=== PATIENT | male | born 1955 | race Caucasian/White ===

== ENCOUNTER 2019-01-25 13:00 | Observation (INO) | payer BC ==
[2019-01-25] MEDS ORDERED: LEVALBUTEROL 1.25 MG/3 ML NEB ONE (14:43)
[2019-01-25 15:03] LABS: ALT/SGPT 20 U/L (12-78); AST/SGOT 7 U/L (15-37); Albumin 3.1 g/dL (3.4-5.0); Alkaline Phosphatase 96 U/L (45-117); BUN Blood Urea Nitrogen 9 mg/dL (7-18); Bicarbonate 36 mmol/L (21-32); Bilirubin Direct 0.1 mg/dL (0-0.2); Bilirubin Total 0.5 mg/dL (0.2-1.0); Glucose Level 78 mg/dL (74-106); Lipase 122 U/L (73-393); Magnesium 1.8 mg/dL (1.8-2.4); NT PRO-BNP 2984 pg/mL (<125); Potassium 3.3 mmol/L (3.5-5.1); Protein, Total 7.3 g/dL (6.4-8.2); Sodium Level 146 mmol/L (136-145); Troponin (Emerg Dept Use Only) 0.06 ng/mL (0.0-0.045)
--- NOTE | 2019-01-25 15:25 | RAD REPORT ---
EXAM DESCRIPTION: RAD - Chest Pa And Lat (2 Views) - 01/25/2019 2:57 pm CLINICAL HISTORY: SOB Chest pain. COMPARISON: Chest For Pe Angio dated 01/25/2019 FINDINGS: Diffuse emphysema is present. Mild interstitial pulmonary edema likely present. The heart is mildly enlarged in size. No displaced fractures. IMPRESSION: Mild CHF superimposed on COPD.
--- NOTE | 2019-01-25 15:33 | RAD REPORT ---
EXAM DESCRIPTION: CT - Chest For Pe Angio - 01/25/2019 3:20 pm CLINICAL HISTORY: Chest pain. DYSPNEA COMPARISON: Chest Abd Pelvis Wo Con dated 06/09/2017 TECHNIQUE: CT angiogram of the pulmonary arteries was performed with MIP. All CT scans are performed using dose optimization technique as appropriate and may include automated exposure control or mA/KV adjustment according to patient size. FINDINGS: No evidence of pulmonary thromboembolism. No acute aortic finding demonstrated. The heart is moderately enlarged. Mild emphysematous changes are present with mild to moderate pulmonary edema. Linear atelectasis is s een in the lingula. No significant pericardial or pleural fluid. No concerning bony finding. Small hiatal hernia. Left adrenal lesion measuring 23 mm is noted. 3.9 cm left thyroid nodule is present. IMPRESSION: No evidence of pulmonary thromboembolism. Mild CHF.
[2019-01-25 15:39] LABS: Absolute Lymphocytes (CBC) 1.5 K/uL (0.7-4.9); Absolute Monocytes 0.9 K/uL (0.1-1.3); Absolute Neutrophil 7.6 K/uL (1.8-8.0); Basophils % 1.1 % (0-1.3); Hematocrit 44.1 % (39.6-49.0); Lymphocytes % 15.1 % (15.3-44.8); MPV 10.3 fL (7.6-11.3); Monocytes % 8.6 % (3.3-12.3); RBC Red Blood Cell Count 5.16 M/uL (4.33-5.43)
[2019-01-25 15:56] LABS: Protime INR 1.07
[2019-01-25] MEDS ORDERED: POTASSIUM 25 MEQ EFFERV TAB ONE (16:32)
[2019-01-25] MEDS ORDERED: FUROSEMIDE 40 MG/4 ML VIAL ONE (16:52)
[2019-01-25] MEDS ORDERED: NITROGLYCERIN 0.4 MG/TAB SL ONE (16:52)
--- NOTE | 2019-01-25 17:00 | EDPHYS ---
Physician Documentation [facility] Name: Daniel Barroso Age: 63 yrs Sex: Male : 1955 Arrival Date: 01/25/2019 Time: 13:05 Bed 27 Private MD: ED Physician French Leblanc HPI: 01/25 16:36 This 63 yrs old Male presents to ER via EMS with complaints of Shortness Of wa Breath. 16:36 This 63 yrs old Male presents to ER via EMS with complaints of Shortness Of wa Breath. 16:36 The patient has shortness of breath at rest, with light activity, that occurred at md home, and the patient has a history of HTN, DM. Onset: The symptoms/episode began/occurred 4 week(s) ago. Duration: The symptoms are continuous, and are steadily getting worse. The patient's shortness of breath is aggravated by exertion, light activity, walking, is alleviated by nothing. Associated signs and symptoms: Pertinent negatives: chest pain, non-productive cough, diaphoresis, dizziness, fever, hemoptysis, loss of consciousness, numbness in extremities, visual changes, vomiting. Severity of symptoms: At their worst the symptoms were moderate in the emergency department the symptoms are unchanged. The patient has not experienced similar symptoms in the past. The patient has been recently seen by a physician: seen 2 weeks ago at [place]. echo and other tests done. states does not know the results as yet. as noted above. Historical: - Allergies: 13:21 Aspirin; ca1 - Home Meds: 13:21 Lantus 100 unit/mL Sub-Q soln [Active]; ca1 - PMHx: 13:21 Hypertension; ca1 20:05 Diabetes - IDDM; ca1 - PSHx: 13:21 right hip replacement; ca1 - Immunization history:: Adult Immunizations up to date, Flu vaccine is up to date. - Social history:: Smoking status: Patient/guardian denies using tobacco, the patient reports quitting approximately 30 years ago. - Ebola Screening: : No symptoms or risks identified at this time. - Family history:: not pertinent. - Hospitalizations: : No recent hospitalization is reported. ROS: 16:39 Constitutional: Negative for fever, chills, and weight loss, Eyes: Negative for injury, wa pain, redness, and discharge, ENT: Negative for injury, pain, and discharge, Neck: Negative for injury, pain, and swelling, Abdomen/GI: Negative for abdominal pain, nausea, vomiting, diarrhea, and constipation, Back: Negative for injury and pain, : Negative for injury, bleeding, discharge, and swelling, MS/Extremity: Negative for injury and deformity, Skin: Negative for injury, rash, and discoloration, Neuro: Negative for headache, weakness, numbness, tingling, and seizure, Psych: Negative for depression, anxiety, suicide ideation, homicidal ideation, and hallucinations. 16:39 Cardiovascular: Positive for edema, Negative for chest pain, orthopnea, palpitations, paroxysmal nocturnal dyspnea. Exam: 16:43 Constitutional: This is a well developed, well nourished patient who is awake, alert, wa and in no acute distress. Head/Face: Normocephalic, atraumatic. Eyes: Pupils equal round and reactive to light, extra-ocular motions intact. Lids and lashes normal. Conjunctiva and sclera are non-icteric and not injected. Cornea within normal limits. Periorbital areas with no swelling, redness, or edema. ENT: Nares patent. No nasal discharge, no septal abnormalities noted. Tympanic membranes are normal and external auditory canals are clear. Oropharynx with no redness, swelling, or masses, exudates, or evidence of obstruction, uvula midline. Mucous membranes moist. Neck: Trachea midline, no thyromegaly or masses palpated, and no cervical lymphadenopathy. Supple, full range of motion without nuchal rigidity, or vertebral point tenderness. No Meningismus. Chest/axilla: Normal chest wall appearance and motion. Nontender with no deformity. No lesions are appreciated. Abdomen/GI: Soft, non-tender, with normal bowel sounds. No distension or tympany. No guarding or rebound. No evidence of tenderness throughout. Back: No spinal tenderness. No costovertebral tenderness. Full range of motion. Skin: Warm, dry with normal turgor. Normal color with no rashes, no lesions, and no evidence of cellulitis. Neuro: Awake and alert, GCS 15, oriented to person, place, time, and situation. Cranial nerves II-XII grossly intact. Motor strength 5/5 in all extremities. Sensory grossly intact. Cerebellar exam normal. Normal gait. Psych: Awake, alert, with orientation to person, place and time. Behavior, mood, and affect are within normal limits. 16:43 Cardiovascular: Rate: tachycardic, Rhythm: regular, Pulses: no pulse deficits are appreciated, Heart sounds: normal, Edema: 1+ edema to level of left midcalf, left ankle, right midcalf and right ankle, JVD: is not appreciated. 16:43 Respiratory: the patient does not display signs of respiratory distress, Respirations: normal, Breath sounds: decreased breath sounds, that are moderate, are heard in the diffusely. Vital Signs: 13:06 BP 146 / 107; Pulse 107; Resp 16 S; Temp 98.2; Pulse Ox 90% on R/A; Weight 117.93 kg; ca1 Height 6 ft. 0 in. (182.88 cm); Pain 0/10; 14:01 BP 164 / 100; Pulse 104; Resp 18 S; Pulse Ox 100% on 2 lpm NC; ca1 14:15 BP 159 / 96; Pulse 104; Resp 18 S; Temp 98(O); Pulse Ox 99% on 2 lpm NC; ca1 14:30 BP 159 / 113; Pulse 108; Resp 18 S; Pulse Ox 99% on 2 lpm NC; ca1 15:01 Resp 20 S; Pulse Ox 84% on R/A; ca1 15:04 BP 154 / 101; Pulse 104; Resp 17 S; Pulse Ox 98% on 2 lpm NC; ca1 15:40 BP 143 / 96; Pulse 104; Resp 20 S; Pulse Ox 96% on 2 lpm NC; ca1 16:31 BP 131 / 88; Pulse 113; Resp 26; Temp 98; Pulse Ox 97% on 2 lpm NC; ca1 17:02 BP 120 / 95; Pulse 107; Resp 22; Pulse Ox 100% on 2 lpm NC; ca1 17:30 BP 118 / 84; Pulse 101; Resp 22; Pulse Ox 95% on 2 lpm NC; ca1 18:21 BP 138 / 98; Pulse 95; Resp 24 S; Temp 98.1(O); Pulse Ox 100% on 2 lpm NC; ca1 18:45 BP 119 / 80; Pulse 94; Resp 22 S; Temp 98.1; Pulse Ox 98% on 2 lpm NC; ca1 19:06 BP 115 / 85; Pulse 96; Resp 19; Temp 98(O); Pulse Ox 99% on 2 lpm NC; ca1 19:26 BP 135 / 86; Pulse 97; Resp 17 S; Temp 98; Pulse Ox 99% on 2 lpm NC; ca1 13:06 Body Mass Index 35.26 (117.93 kg, 182.88 cm) ca1 MDM: 13:24 Patient medically screened. md 16:46 Differential diagnosis: CHF exacerbation, Chronic Obstructive Pulmonary Disease wa Myocardial Infarction pneumonia, pulmonary edema, Pulmonary Embolism reactive airway disease, Sepsis Unstable Angina. Data reviewed: vital signs, nurses notes, lab test result(s), EKG, radiologic studies. Test interpretation: by ED physician or midlevel provider: EKG: HR 104. sinus tach. nml axis. PVCs. ST-T changes non-specific. 16:47 Test interpretation: by ED physician or midlevel provider:. md 16:57 ED course: received lasix, nitro, and lovenox. will admit for further eval. . md 01/25 14:05 Order name: BMP; Complete Time: 16:11 01/25 14:05 Order name: CBC with Diff; Complete Time: 16:14 01/25 14:05 Order name: Hepatic Function; Complete Time: 16:14 01/25 14:05 Order name: Lipase; Complete Time: 16:14 01/25 14:05 Order name: Magnesium; Complete Time: 16:14 01/25 14:05 Order name: NT PRO-BNP; Complete Time: 16:14 01/25 14:05 Order name: CT Chest For PE Angio; Complete Time: 16:14 01/25 14:05 Order name: XRAY Chest Pa And Lat (2 Views); Complete Time: 16:14 01/25 14:05 Order name: PT-INR; Complete Time: 16:14 01/25 14:05 Order name: Troponin (emerg Dept Use Only); Complete Time: 16:14 01/25 14:05 Order name: EKG; Complete Time: 14:06 01/25 14:05 Order name: Cardiac monitoring; Complete Time: 14:10 01/25 14:05 Order name: EKG - Nurse/Tech; Complete Time: 14:10 01/25 14:05 Order name: IV Saline Lock; Complete Time: 14:32 01/25 14:05 Order name: Labs collected and sent; Complete Time: 14:10 md 01/25 14:05 Order name: O2 Per Protocol; Complete Time: 14:11 md 01/25 14:05 Order name: O2 Sat Monitoring; Complete Time: 14:11 md Administered Medications: 14:15 Drug: Xopenex 1.25 mg Route: Inhalation; ca1 16:20 Drug: Potassium Effervescent Tablet 50 mEq Route: PO; ca1 17:08 Follow up: Response: No adverse reaction ca1 16:40 Drug: Nitroglycerin 0.4 mg Route: Sublingual; ca1 17:08 Follow up: Response: No adverse reaction ca1 16:42 Drug: Lasix 40 mg Route: IVP; Site: left antecubital; ca1 17:08 Follow up: Urine output 700 ml; Response: No adverse reaction ca1 17:05 Drug: Lovenox 100 mg Route: Sub-Q; Site: right lower abdomen; ca1 18:27 Follow up: Response: No adverse reaction ca1 Disposition: 16:58 Critical Care:. md Disposition: 01/25/19 17:00 Hospitalization ordered by Errol Ibrahim for Observation. Preliminary diagnosis are Dyspnea, Pulmonary edema, Acute CHF. - Bed requested for Telemetry/MedSurg (observation). - Status is Observation. ca1 - Condition is Stable. - Problem is new. - Symptoms have improved. UTI on Admission? No Critical care time excluding procedures: 16:58 Critical care time: Bedside Care: 15 minutes, Consultation: 5 minutes, Family wa Intervention: 10 minutes. Total time: 30 minutes Signatures: Dispatcher [employer] Amy Ash RN RN dw Appiah, William, MD MD wa Acob, Cheryl, RN RN ca1 Corrections: (The following items were deleted from the chart) 17:00 17:00 Hospitalization Ordered by Errol Ibrahim MD for Observation. Preliminary diagnosis wa is Dyspnea; Pulmonary edema; Acute CHF. Bed requested for Telemetry/MedSurg (observation). Status is Observation. Condition is Stable. Problem is new. Symptoms have improved. UTI on Admission? No. md 18:15 17:00 01/25/2019 17:00 Hospitalization Ordered by Errol Ibrahim MD for Observation. dw Preliminary diagnosis is Dyspnea; Pulmonary edema; Acute CHF. Bed requested for Telemetry/MedSurg (observation). Status is Observation. Condition is Stable. Problem is new. Symptoms have improved. UTI on Admission? No. wa 20:06 13:21 PMHx: Diabetes - NIDDM; ca1 ca1 20:13 18:15 01/25/2019 17:00 Hospitalization Ordered by Errol Ibrahim MD for Observation. ca1 Preliminary diagnosis is Dyspnea; Pulmonary edema; Acute CHF. Bed requested for Telemetry/MedSurg (observation). Status is Observation. Condition is Stable. Problem is new. Symptoms have improved. UTI on Admission? No. dw
--- NOTE | 2019-01-25 17:00 | ER ---
Nurse's Notes [facility] Name: Daniel Barroso Age: 63 yrs Sex: Male : 1955 Arrival Date: 01/25/2019 Time: 13:05 Bed 27 Private MD: Diagnosis: Dyspnea;Pulmonary edema;Acute CHF Presentation: 01/25 13:06 Presenting complaint: EMS states: "We were called to the [place] for SOB and Tachycardia". ca1 Pt has a HX of Tachycardia and SOB has been going on for about a month as reported by the pt. HR at the 90s, SPO2 92% RA, 96% at 2LPM. Stress Test was done 2 weeks ago but has no results yet. Transition of care: [facility]. Onset of symptoms. Onset of symptoms was January 25, 2019. Risk Assessment: Do you want to hurt yourself or someone else? Patient reports no desire to harm self or others. Initial Sepsis Screen: Does the patient meet any 2 criteria? No. Patient's initial sepsis screen is negative. Does the patient have a suspected source of infection? No. Patient's initial sepsis screen is negative. Care prior to arrival: Glucose check: 132. 13:06 Method Of Arrival: EMS: [facility] ca1 13:06 Acuity: JACK 3 ca1 Triage Assessment: 13:06 General: Appears in no apparent distress. comfortable, Behavior is calm, cooperative, ca1 appropriate for age. Pain: Denies pain. Respiratory: Reports shortness of breath at rest on exertion since about a month ago Onset: The symptoms/episode began/occurred gradually, the patient has mild shortness of breath. Historical: - Allergies: 13:21 Aspirin; ca1 - Home Meds: 13:21 Lantus 100 unit/mL Sub-Q soln [Active]; ca1 - PMHx: 13:21 Hypertension; ca1 20:05 Diabetes - IDDM; ca1 - PSHx: 13:21 right hip replacement; ca1 - Immunization history:: Adult Immunizations up to date, Flu vaccine is up to date. - Social history:: Smoking status: Patient/guardian denies using tobacco, the patient reports quitting approximately 30 years ago. - Ebola Screening: : No symptoms or risks identified at this time. - Family history:: not pertinent. - Hospitalizations: : No recent hospitalization is reported. Screenin:10 Abuse screen: Denies threats or abuse. Denies injuries from another. Nutritional ca1 screening: No deficits noted. Tuberculosis screening: No symptoms or risk factors identified. Fall Risk None identified. Assessment: 13:10 General: Appears in no apparent distress. comfortable, Behavior is calm, cooperative, ca1 appropriate for age. 13:10 General:. Pain: Denies pain. Neuro: Level of Consciousness is awake, alert, obeys ca1 commands, Oriented to person, place, time, situation. Cardiovascular: Heart tones S1 S2 present Capillary refill < 3 seconds Patient's skin is warm and dry. Rhythm is sinus tachycardia. Respiratory: Airway is patent Respiratory effort is even, unlabored, Respiratory pattern is regular, symmetrical, Breath sounds are clear bilaterally. Respiratory: Reports shortness of breath at rest on exertion. GI: Abdomen is round non-distended, Bowel sounds present X 4 quads. Abd is soft and non tender X 4 quads. : No deficits noted. No signs and/or symptoms were reported regarding the genitourinary system. EENT: No deficits noted. No signs and/or symptoms were reported regarding the EENT system. Derm: Skin is intact, is healthy with good turgor, Skin is pink, warm \\T\\ dry. Musculoskeletal: Circulation, motion, and sensation intact. Capillary refill < 3 seconds. 14:32 Reassessment: Patient appears in no apparent distress at this time. Patient and/or ca1 family updated on plan of care and expected duration. Pain level reassessed. Patient is alert, oriented x 3, equal unlabored respirations, skin warm/dry/pink. 14:48 Reassessment: Pt to Radiology. ca1 14:58 Reassessment: Patient appears in no apparent distress at this time. Patient is alert, ca1 oriented x 3, equal unlabored respirations, skin warm/dry/pink. Pt back from Xray. 15:01 Reassessment: Pt back from Xray per wheelchair. Went without O2. Pt reports a little ca1 short of breath after going back to bed. SPO2 at 84% RA. Connected back to 02 at 2LPM, SPO2 at 98%. 15:12 Reassessment: Pt to CT scan on bed with O2 on at 2LPM. ca1 15:24 Reassessment: Patient appears in no apparent distress at this time. Patient is alert, ca1 oriented x 3, equal unlabored respirations, skin warm/dry/pink. back from CT scan. 16:31 Reassessment: Patient appears in no apparent distress at this time. Patient is alert, ca1 oriented x 3, equal unlabored respirations, skin warm/dry/pink. Dr. Leblanc at bedside. 17:29 Reassessment: Patient appears in no apparent distress at this time. Patient and/or ca1 family updated on plan of care and expected duration. Pain level reassessed. Patient is alert, oriented x 3, equal unlabored respirations, skin warm/dry/pink. Awaiting room assignment. 18:21 Reassessment: Patient appears in no apparent distress at this time. Patient is alert, ca1 oriented x 3, equal unlabored respirations, skin warm/dry/pink. 19:26 Reassessment: Patient appears in no apparent distress at this time. Patient is alert, ca1 oriented x 3, equal unlabored respirations, skin warm/dry/pink. Nurse who will receive pt just received a report from another nurse about another pt. Will call her in 30 minutes to give report. Vital Signs: 13:06 BP 146 / 107; Pulse 107; Resp 16 S; Temp 98.2; Pulse Ox 90% on R/A; Weight 117.93 kg; ca1 Height 6 ft. 0 in. (182.88 cm); Pain 0/10; 14:01 BP 164 / 100; Pulse 104; Resp 18 S; Pulse Ox 100% on 2 lpm NC; ca1 14:15 BP 159 / 96; Pulse 104; Resp 18 S; Temp 98(O); Pulse Ox 99% on 2 lpm NC; ca1 14:30 BP 159 / 113; Pulse 108; Resp 18 S; Pulse Ox 99% on 2 lpm NC; ca1 15:01 Resp 20 S; Pulse Ox 84% on R/A; ca1 15:04 BP 154 / 101; Pulse 104; Resp 17 S; Pulse Ox 98% on 2 lpm NC; ca1 15:40 BP 143 / 96; Pulse 104; Resp 20 S; Pulse Ox 96% on 2 lpm NC; ca1 16:31 BP 131 / 88; Pulse 113; Resp 26; Temp 98; Pulse Ox 97% on 2 lpm NC; ca1 17:02 BP 120 / 95; Pulse 107; Resp 22; Pulse Ox 100% on 2 lpm NC; ca1 17:30 BP 118 / 84; Pulse 101; Resp 22; Pulse Ox 95% on 2 lpm NC; ca1 18:21 BP 138 / 98; Pulse 95; Resp 24 S; Temp 98.1(O); Pulse Ox 100% on 2 lpm NC; ca1 18:45 BP 119 / 80; Pulse 94; Resp 22 S; Temp 98.1; Pulse Ox 98% on 2 lpm NC; ca1 19:06 BP 115 / 85; Pulse 96; Resp 19; Temp 98(O); Pulse Ox 99% on 2 lpm NC; ca1 19:26 BP 135 / 86; Pulse 97; Resp 17 S; Temp 98; Pulse Ox 99% on 2 lpm NC; ca1 13:06 Body Mass Index 35.26 (117.93 kg, 182.88 cm) ca1 ED Course: 13:05 Patient arrived in ED. ca1 13:06 Arm band placed on right wrist. ca1 13:10 Patient has correct armband on for positive identification. Placed in gown. Bed in low ca1 position. Call light in reach. Side rails up X 1. quality assurance monitor body on. Pulse ox on. NIBP on. Warm blanket given. 13:12 Triage completed. ca1 13:18 Randee Murillo, RN is Primary Nurse. ca1 13:24 French Leblanc MD is Attending Physician. wa 13:24 EKG done, by gate technician. reviewed by French Leblanc MD. at1 14:21 Inserted saline lock: 20 gauge in left antecubital area, using aseptic technique. Blood ca1 collected. 14:51 Radiology exam delayed due to lab results not completed at this time. (BUN/Creatinine). vm2 14:53 XRAY Chest Pa And Lat (2 Views) In Process Unspecified. EDMS 15:22 CT Chest For PE Angio In Process Unspecified. EDMS 16:59 Errol Ibrahim MD is Hospitalizing Provider. wa 18:27 No provider procedures requiring assistance completed. Patient admitted, IV remains in ca1 place. Administered Medications: 14:15 Drug: Xopenex 1.25 mg Route: Inhalation; ca1 16:20 Drug: Potassium Effervescent Tablet 50 mEq Route: PO; ca1 17:08 Follow up: Response: No adverse reaction ca1 16:40 Drug: Nitroglycerin 0.4 mg Route: Sublingual; ca1 17:08 Follow up: Response: No adverse reaction ca1 16:42 Drug: Lasix 40 mg Route: IVP; Site: left antecubital; ca1 17:08 Follow up: Urine output 700 ml; Response: No adverse reaction ca1 17:05 Drug: Lovenox 100 mg Route: Sub-Q; Site: right lower abdomen; ca1 18:27 Follow up: Response: No adverse reaction ca1 Output: 17:02 Urine: 700ml (Voided); Total: 700ml. ca1 17:08 Urine: 700ml; Total: 1400ml. ca1 18:13 Urine: 750ml (Voided); Total: 2150ml. ca1 18:26 Urine: 840ml (Voided); Total: 2990ml. ca1 Outcome: 17:00 Decision to Hospitalize by Provider. wa 20:06 Admitted to Med/surg accompanied by tech, via wheelchair, room 219, with oxygen, with ca1 chart, Report called to Candice Garnett RN 20:06 Condition: stable 20:06 Instructed on the need for admit. 20:13 Patient left the ED. ca1 Signatures: Dispatcher [employer] EDMS Yazmin Brown, field appraiser EKG Tat1 Mary Grissom vm2 French Leblanc MD MD wa Acob, Cheryl RN RN ca1 Corrections: (The following items were deleted from the chart) 15:12 15:12 Reassessment: Pt to CT scan ca1 ca1 18:44 15:29 Reassessment: Patient appears in no apparent distress at this time. Patient ca1 and/or family updated on plan of care and expected duration. Pain level reassessed. Patient is alert, oriented x 3, equal unlabored respirations, skin warm/dry/pink. Awaiting room assignment ca1 20:06 13:21 PMHx: Diabetes - NIDDM; ca1 ca1
[2019-01-25] MEDS ORDERED: ENOXAPARIN 100 MG/ML SYR SQ ONE (17:18)
--- NOTE | 2019-01-25 19:11 | EKG ---
Test Date: 2019-01-25 Test Time: 13:24:34 Secretary Office Clerk: EMY MEASUREMENT RESULTS: Intervals: Rate: 104 NC: 134 QRSD: 92 QT: 368 QTc: 483 [place]: P: 36 NC: 134 QRS: -12 T: 44 INTERPRETIVE STATEMENTS: Sinus tachycardia with occasional premature ventricular complexes and fusion complexes Possible Left atrial enlargement Nonspecific T wave abnormality Abnormal ECG No previous ECG available for comparison Electronically Signed On 01-25-19 19:09:53 CDT by Evangelist Walker
[2019-01-25] MEDS ORDERED: ONDANSETRON 4 MG/2 ML VIAL IV PRN (20:00)
[2019-01-25] MEDS: INSULIN -REGULAR HUMAN 50 UNIT/0.5 ML ML SQ SCH (21:00)
[2019-01-26] MEDS ORDERED: FUROSEMIDE 40 MG/4 ML VIAL IV ONE (05:24)
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
[2019-01-26 07:01] LABS: Urine Appearance CLEAR; Urine Bilirubin NEGATIVE (NEG); Urine Blood NEGATIVE (NEG); Urine Color YELLOW; Urine Glucose 1+ (NEG); Urine Protein NEGATIVE (NEG); Urine Urobilinogen 0.2 mg/dL (0.2-1.0); Urine pH 6.5 (5.0-7.0)
[2019-01-26 07:06] LABS: Urine Microscopic Reflex ORDER UMIC
[2019-01-26 07:25] LABS: Absolute Lymphocytes (CBC) 1.1 K/uL (0.7-4.9); Absolute Monocytes 0.7 K/uL (0.1-1.3); Absolute Neutrophil 7.3 K/uL (1.8-8.0); Basophils % 0.3 % (0-1.3); Hematocrit 46.4 % (39.6-49.0); Monocytes % 7.6 % (3.3-12.3); RBC Red Blood Cell Count 5.42 M/uL (4.33-5.43)
[2019-01-26] MEDS: INSULIN -REGULAR HUMAN 50 UNIT/0.5 ML ML SQ SCH ×4 (07:30→21:00)
[2019-01-26 07:41] LABS: Albumin 3.1 g/dL (3.4-5.0); Bilirubin Total 0.6 mg/dL (0.2-1.0); Magnesium 1.9 mg/dL (1.8-2.4); Phosphorus 5.1 mg/dL (2.5-4.9); Potassium 3.5 mmol/L (3.5-5.1); Protein, Total 7.6 g/dL (6.4-8.2)
[2019-01-26] MEDS: ENOXAPARIN 40 MG/0.4 ML SQ SCH (08:44)
--- NOTE | 2019-01-26 12:40 | ECHO ---
HEIGHT: 6 ft 0 in WEIGHT: 272 lb 0 oz DATE OF STUDY: 01/26/[address]: Axel Johnson MD 2-DIMENSIONAL: YES M.MODE: YES DOPPLER: YES COLOR FLOW: YES TDS: NO PORTABLE: NO DEFINITY: NO BUBBLE STUDY: NO DIAGNOSIS: CONGESTIVE HEART FAILURE CARDIAC HISTORY: CATHERIZATION: NO SURGERY: NO PROSTHETIC VALVE: NO PACEMAKER: NO MEASUREMENTS (cm) DIASTOLIC (NORMALS) SYSTOLIC (NORMALS) IVSd 1.2 (0.6-1.2) LA Diam 4.5 (1.9-4.0) LVEF 40% LVIDd 4.9 (3.5-5.7) LVIDs 4.0 (2.0-3.5) %FS 20% LVPWd 1.2 (0.6-1.2) Ao Diam 2.6 (2.0-3.7) 2 DIMENSIONAL ASSESSMENT: RIGHT ATRIUM: NORMAL LEFT ATRIUM: DILATED RIGHT VENTRICLE: NORMAL LEFT VENTRICLE: NORMAL SIZE TRICUSPID VALVE: NORMAL MITRAL VALVE: NORMAL PULMONIC VALVE: NORMAL AORTIC VALVE: SCLEROSIS PERICARDIAL EFFUSION: NONE AORTIC ROOT: NORMAL LEFT VENTRICULAR WALL MOTION: MILD GLOBAL HYPOKINESIS. DOPPLER/COLOR FLOW: MILD TRICUSPID REGURGITATION. COMMENTS: MILD GLOBAL HYPOKINESIS. LEFT VENTRICULAR EJECTION FRACTION 40-45%. AORTIC SCLEROSIS. LEFT ATRIAL ENLARGEMENT. TECHNOLOGIST: Steve RHOADES
[2019-01-26] MEDS: FUROSEMIDE 40 MG/4 ML VIAL IV SCH (16:09)
--- NOTE | 2019-01-26 18:19 | PN ---
Date of Progress Note: 01/26/2019 The patient was seen and examined. Chart reviewed and case discussed with RN. The patient states that his breathing has improved. Edema has gone down. Upon further increase, the patient had recent stress test done at the [facility] approximately a week and a half ago. We will attempt to obtain records. Medications: List reviewed. Code Status: Full. Physical Examination: Vital Signs: Temperature 97.5, heart rate 98, blood pressure 126/77, respirations 18, O2 95% on 2 L via nasal cannula. General: Awake, alert, oriented x3, in some mild distress, appears older than stated age, elderly male. CV: S1, S2. Regular rate and rhythm. Peripheral pulses weak bilaterally. Respiratory: Diminished breath sounds. No wheezing or stridor. No use of accessory muscles. Gastrointestinal: Abdomen is soft, nontender, nondistended. Positive bowel sounds. No guarding or rigidity. Extremities: No clubbing or cyanosis. The patient has peripheral edema. Neuro: Cranial nerves 2-12 intact grossly. No focal neurological deficits. Speech is normal. Laboratory Data: Sodium 143, potassium 3.5, chloride 102, CO2 of 41, BUN 9, creatinine 0.89, glucose 91, calcium 8.5, phosphorus 5.1, magnesium 1.9, troponin 0.06, 0.05. Albumin 3.1. WBC 9.2, H and H 14.2 and 46.4, platelets 301, neutrophils 79%. Echocardiogram shows EF of 40%, mild global hypokinesis and aortic sclerosis, left atrial enlargement. Assessment: 1. A 63-year-old male with acute on chronic systolic congestive heart failure. We will continue with diuretics. The patient's symptoms are improved. We will obtain records from the [facility]. 2. Diabetes mellitus type 2 with long-term use of insulin with hyperglycemia. We will continue on sliding scale insulin and monitor blood glucose levels. 3. Essential hypertension, stable. 4. Deep vein thrombosis prophylaxis with Lovenox. 5. Elevated troponin level, likely secondary to CHF, recent stress test at the [facility] was negative according to the patient's records in the process of being obtained. /KONG Voice ID: [id number] Report ID: [id number] ALEC
[2019-01-26] MEDS: CARVEDILOL 6.25 MG TAB PO SCH (21:05)
[2019-01-26] MEDS: predniSONE 20 MG TAB PO SCH (21:05)
[2019-01-27] MEDS: FUROSEMIDE 40 MG/4 ML VIAL IV SCH ×2 (01:53→13:46)
[2019-01-27 04:57] LABS: Absolute Lymphocytes (CBC) 0.8 K/uL (0.7-4.9); Absolute Monocytes 0.4 K/uL (0.1-1.3); Absolute Neutrophil 9.2 K/uL (1.8-8.0); Basophils % 0.6 % (0-1.3); Eosinophils % 0.1 % (0-4.4); Hematocrit 46.2 % (39.6-49.0); Lymphocytes % 7.7 % (15.3-44.8); MPV 10.2 fL (7.6-11.3); Monocytes % 3.5 % (3.3-12.3); RBC Red Blood Cell Count 5.37 M/uL (4.33-5.43)
[2019-01-27 05:14] LABS: Albumin 3.1 g/dL (3.4-5.0); Bilirubin Total 0.8 mg/dL (0.2-1.0); Potassium 4.1 mmol/L (3.5-5.1); Protein, Total 7.5 g/dL (6.4-8.2)
[2019-01-27 07:20] LABS: Blood Morphology Comment NOT SEEN (NOT SEEN); Platelet Estimate ADEQ; Platelets, Giant FEW PRESENT
[2019-01-27] MEDS: INSULIN -REGULAR HUMAN 50 UNIT/0.5 ML ML SQ SCH ×3 (07:30→17:27)
[2019-01-27] MEDS ORDERED: POTASSIUM CL SA 10 MEQ TAB PO SCH (09:00)
[2019-01-27] MEDS ORDERED: LISINOPRIL 10 MG TAB PO SCH (09:00)
[2019-01-27] MEDS: predniSONE 20 MG TAB PO SCH (09:07)
[2019-01-27] MEDS: ENOXAPARIN 40 MG/0.4 ML SQ SCH (09:07)
[2019-01-27] MEDS: CARVEDILOL 6.25 MG TAB PO SCH (09:08)
[2019-01-27] MEDS ORDERED: D50W 25 GM/50 ML SYRINGE IV PRN (14:11)
[2019-01-27] MEDS ORDERED: GLUCAGON 1 MG/VIAL IM PRN (14:11)
--- NOTE | 2019-01-28 02:23 | DS ---
Date of Discharge: 01/27/2019 Admitting Diagnoses: 1.Acute CHF. 2.Diabetes mellitus, type 2, with hyperglycemia with long-term use of insulin. 3.Essential hypertension. Discharge Diagnoses: 1.Acute on chronic systolic congestive heart failure, EF 40%. 2.Diabetes mellitus, type 2, with long-term use of insulin with hyperglycemia, stable. 3.Essential hypertension, stable. 4.Obesity, BMI 34.8. 5.Acute respiratory distress, requiring supplemental oxygen. 6.Likely COPD with chronic CO2 retention. 7.Elevated troponin level, likely secondary to demand mismatch and congestive heart failure, recent stress test at the [facility], which was negative. Hospital Course: The patient is a 63-year-old male, who goes to the [facility] with past medical history of hypertension, diabetes, started having shortness of breath, went to the [facility], had a stress test done an d was released. The patient had recurrent episode of shortness of breath, was admitted to our facili ty. Imaging studies showed mild CHF. CT angio was negative for PE. He did have normal white count. No signs of pneumonia. The patient had a mild troponin elevation, which was likely due to his CHF. The patient was started on diuretics. He responded well. He made good urine output and his weight decreased from 260-256 pounds, had negative fluid balance. The patient likely does have COPD, which has not been diagnosed previously. He is a smoker and is a chronic CO2 retainer. The patient was r equiring supplemental oxygen. With treatment, he improved and was able to be weaned off oxygen. Ech ocardiogram showed an EF of 40% with global hypokinesis, which was mild. Also showed aortic sclerosi s and left atrial enlargement. The patient has had a recent stress test at the [facility]. He will need to follow up with the control panel assembler at the [facility] for further workup. The patient was then cleared for disch arge. He was able to ambulate without difficulty. His shortness of breath has improved and swelling has gone down. The patient was instructed to monitor his weight daily and to take an extra dose of Lasix if his weight increases by 3 pounds and to call his physician. Medications: As per medication reconciliation list. Followup: Follow up at the [facility] in 2-3 days. Follow up with control panel assembler in 1-2 weeks at the [facility]. Ret urn to ER for worsening condition. Diet: Low sodium, 1500 mL fluid restriction. Activity: As tolerated. Physical Examination: General: Awake, alert, oriented x3. No acute distress. CV: S1, S2. No murmurs. Respiratory: Moving air well bilaterally. Abdomen: Soft, nontender, nondistended. Positive bowel sounds. Extremities: No clubbing, cyanosis, trace pedal edema. Neuro: Nonfocal. SA/MODL Voice ID: [id number] Report ID: [id number]
[2019-01-28] MEDS ORDERED: INSULIN GLARGINE 100 UNITS/ML SQ SCH (08:00)
[2019-01-28] MEDS ORDERED: EMPAGLIFLOZIN 12.5 MG PO SCH (09:00)
[2019-01-28] MEDS ORDERED: ALLOPURINOL 100 MG TAB PO SCH (09:00)
== END 2019-01-27 17:55 | disposition home or self-care (01) ==
LOC: ER 13:00 → ERHOLD 17:28 → 2ND 19:39
PROVIDERS: ADMIT Family Medicine; ATTEND Family Medicine
DX: I11.0 Hypertensive heart disease with heart failure (principal); I50.23 Acute on chronic systolic (congestive) heart failure; E11.65 Type 2 diabetes mellitus with hyperglycemia; R06.03 Acute respiratory distress; I70.0 Atherosclerosis of aorta; J44.9 Chronic obstructive pulmonary disease, unspecified; K44.9 Diaphragmatic hernia without obstruction or gangrene; E04.1 Nontoxic single thyroid nodule; N28.9 Disorder of kidney and ureter, unspecified; E66.9 Obesity, unspecified; Z68.34 Body mass index [BMI] 34.0-34.9, adult; Z79.4 Long term (current) use of insulin; Z87.891 Personal history of nicotine dependence
CPT/HCPCS: 36415; 71046; 71275; 80048; 80053; 80076; 81003; 82962; 83690; 83735; 83880; 84100; 84484; 85025; 85610; 93005; 93306; 94760; 96372; 96374; 99285; G0378; J1650; J1940; J7512; Q9967

== ENCOUNTER 2019-04-22 15:48 | Emergency (ER) | payer BC ==
--- NOTE | 2019-04-22 16:25 | EKG ---
Test Date: 2019-04-22 Test Time: 15:47:34 Private Branch Exchange Service Advisor: BENJAMIN MEASUREMENT RESULTS: Intervals: Rate: 123 SD: 130 QRSD: 90 QT: 330 QTc: 472 [place]: P: 31 SD: 130 QRS: -23 T: 27 INTERPRETIVE STATEMENTS: Sinus tachycardia Otherwise normal ECG Compared to ECG 01/25/2019 13:24:34 Ventricular premature complex(es) no longer present T-wave abnormality no longer present Electronically Signed On 04-22-19 16:25:07 CDT by Faheem Patten
[2019-04-22] MEDS ORDERED: NA CHLORIDE 0.9% 250 ML ONE (16:38)
[2019-04-22 16:45] LABS: Absolute Lymphocytes (CBC) 0.9 K/uL (0.7-4.9); Basophils % 0.5 % (0-1.3); Hematocrit 41.6 % (39.6-49.0); Lymphocytes % 6.5 % (15.3-44.8); MPV 9.5 fL (7.6-11.3); RBC Red Blood Cell Count 4.71 M/uL (4.33-5.43)
[2019-04-22 17:03] LABS: Potassium 4.1 mmol/L (3.5-5.1)
[2019-04-22 17:12] LABS: Platelet Estimate ADEQ; Platelets, Giant NOTED; Urine White Blood Cell Casts OK
[2019-04-22 17:13] LABS: Blood Morphology Comment NOT SEEN (NOT SEEN)
[2019-04-22 17:36] LABS: Urine Blood NEGATIVE (NEG); Urine Glucose 2+ (NEG); Urine Protein NEGATIVE (NEG); Urine Specific Gravity 1.015 (1.005-1.030)
[2019-04-22] MEDS ORDERED: NA CHLORIDE 0.9% 500 ML ONE (18:12)
[2019-04-22] MEDS ORDERED: METOPROLOL TAR 25 MG TAB ONE (18:12)
[2019-04-22 18:54] LABS: Urine Bacteria <20 /HPF (NONE SEEN); Urine RBC <5 /HPF (NONE SEEN)
[2019-04-22 18:55] LABS: Urine Culture Reflex Order NOT NEEDED
--- NOTE | 2019-04-22 18:57 | RAD REPORT ---
EXAM DESCRIPTION: RAD - Chest Single View - 04/22/2019 5:25 pm CLINICAL HISTORY: Tachycardia COMPARISON: January 25 TECHNIQUE: AP portable chest image was obtained 1717 hours . FINDINGS: No focal lung parenchymal process. Interstitial pattern matches the comparison, accentuate d by a slightly shallow inspiration. Heart size is normal range. Upper lobe vasculature is accentuate d by portable technique and slightly shallow inspiration. Significant failure or volume overload are doubtful. No measurable pleural effusion and no pneumothorax. No acute bony abnormality seen. No acut e aortic findings suspected. IMPRESSION: No acute cardiopulmonary process. Chest is not substantially different from comparison. Chronic interstitial pattern could potentially mask early stages of interstitial edema or infiltrate.
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
== END 2019-04-22 19:22 | disposition home or self-care (01) ==
LOC: ER 15:48
DX: E86.9 Volume depletion, unspecified (principal); I10 Essential (primary) hypertension; E11.9 Type 2 diabetes mellitus without complications; Z79.4 Long term (current) use of insulin; Z88.6 Allergy status to analgesic agent; Z91.14 Patient's other noncompliance with medication regimen
CPT/HCPCS: 36415; 71045; 80048; 81003; 81015; 82550; 84443; 85025; 87086; 87088; 93005; 96360; 99284